=== PATIENT | male | born 1970 | race African-American/Black ===

== ENCOUNTER 2021-02-27 18:27 | Emergency (ER) | payer SELFPAY ==
[~2021-02-27] VITALS: Ht 170.2 cm; Wt 80.0 kg
[2021-02-27] MEDS ORDERED: IV NORMAL SALINE 1,000ML 1,000 ML IV ONE (20:30)
[2021-02-27] MEDS ORDERED: ACETAMINOPHEN 325 MG TABLET PO ONE (20:30)
[2021-02-27] MEDS ORDERED: BENZONATATE 100 MG CAPSULE. PO ONE (20:30)
--- NOTE | 2021-02-27 21:27 | RAD ---
Study: XR CHEST 2V Indication: Cough. Congestion. Comparison: None. Findings: Mild airspace infiltrate favored at the right lower lobe. No layering effusion or pneumothorax. Withi n normal limits cardiomediastinal silhouette. Impression: Ill-defined airspace infiltrate at the right lower lung favored within the lower lobe concerning for a developing pneumonia. Recommend follow-up to confirm resolution. Electronically signed by: ISADORA FARRAR MD (02/27/2021 9:25 PM) [facility]
--- NOTE | 2021-02-27 21:34 | PHYS DOC ---
Adult General Chief Complaint Chief Complaint: FLU SYMPTOM HPI HPI Patient is a 42-year-old male, vital signs reviewed, presents to the emergency department complaining of cough and congestion for the past 3 days. Patient states it feels like he has pneumonia again. Patient states he had pneumonia about a year ago and it felt just like this. Patient denies chest pain. Patient complains of nasal congestion, cough, states his cough is productive with green-yellowish sputum small amount. Patient denies chest pain, denies abdominal pain, denies nausea vomiting or diarrhea. Patient denies visual changes or headaches. Patient denies fever or chills at home. Patient denies any other physical complaints or physical concerns. Patient states he smokes cigarettes, denies EtOH use, denies illicit drug use. Review of Systems Review of Systems 14 body systems of review of systems have been reviewed. See HPI for pertinent positives and negative responses, otherwise all other systems are negative, nonpertinent or noncontributory. Current Medications Current Medications Current Medications Medications (Trade) Dose Ordered Sig/[place] Start Time Stop Time Status Last Admin Dose Admin Acetaminophen (Tylenol) 650 mg 1X ONCE 02/27/21 20:30 02/27/21 21:26 DC Benzonatate (Tessalon Perle) 100 mg 1X ONCE 02/27/21 20:30 02/27/21 21:26 DC Sodium Chloride 1,000 ml @ 1,000 mls/hr 1X ONCE 02/27/21 20:30 02/27/21 21:29 DC Allergies Allergies Allergies Coded Allergies Type Severity Reaction Last Updated Verified Penicillins Allergy Unknown 02/27/21 Yes ketorolac Allergy Unknown 02/27/21 Yes Physical Exam Physical Exam Constitutional: Well developed, well nourished, no acute distress, non-toxic appearance. 50-year-old male in no apparent distress. HENT: Normocephalic, atraumatic, bilateral external ears normal, oropharynx moist, no oral exudates, nose normal. Oropharynx moist, pink, no tonsillar edema, no signs of laryngeal infection, no postnasal drip. No lymphadenopathy of the head or neck. Bilateral nasal turbinates erythematous with clear drainage. Eyes: PERRLA, EOMI, conjunctiva normal, no discharge. Neck: Normal range of motion, no tenderness, supple, no stridor. No meningismus signs, no nuchal rigidity, no midline spinal tenderness. Cardiovascular:Heart rate regular rhythm, no murmur, heart sounds S1-S2 to auscultation. Lungs & Thorax: Bilateral breath sounds clear to auscultation all lung jose, no adventitious lung sounds appreciated. Abdomen: Bowel sounds normal, soft, no tenderness, no masses, no pulsatile masses. Skin: Warm, dry, no erythema, no rash. Back: No tenderness, no CVA tenderness. Extremities: No tenderness, no cyanosis, no clubbing, ROM intact, no edema. Neurologic: Alert and oriented X 3, normal motor function, normal sensory function, no focal deficits noted. Psychologic: Affect normal, judgement normal, mood normal. EKG EKG [] Radiology/Procedures Radiology/Procedures []PATIENT: ISADORA CELAYACOUNT: [id number]#: [id number] : 1970 LOCATION: ER AGE: 50 SEX: M EXAM STATUS: REG ER ORD. PHYSICIAN: LINDA HERRING APRN REASON: COUGH, CONGESTION PROCEDURE: CHEST PA & LATERAL Study: XR CHEST 2V Indication: Cough. Congestion. Comparison: None. Findings: Mild airspace infiltrate favored at the right lower lobe. No layering effusion or pneumothorax. Within normal limits cardiomediastinal silhouette. Impression: Ill-defined airspace infiltrate at the right lower lung favored within the lower lobe concerning for a developing pneumonia. Recommend follow-up to confirm resolution. Electronically signed by: ISADORA FARRAR MD (02/27/2021 9:25 PM) [facility] DICTATED AND SIGNED BY: ISADORA FARRAR MD DATE: 02/27/212123 CC: LINDA EHRRING APRN; EMERGENCY,DEPARTMENT; PCP,NO ~MTH0 0 Heart Score C/O Chest Pain: No Risk Factors: Risk Factors: DM, Current or recent (<one month) smoker, HTN, HLP, family history of CAD, obesity. Risk Scores: Risk Factors: DM, Current or recent (<one month) smoker, HTN, HLP, family history of CAD, obesity. Course & Med Decision Making Course & Med Decision Making Pertinent Labs and Imaging studies reviewed. (See chart for details) 50-year-old male, vital signs reviewed, presents emergency department concerning for cough which he feels like is a pneumonia like he has had in the past. Physical examination was unremarkable, however related to patient's chief complaint a PA/lateral chest x-ray was ordered, Tessalon Perle for cough, oral pain medications given. PA lateral chest concerning for right lower lobe pneumonia per house radiologist interpretation. Discussed findings with patient. Will start on Zithromax in the ED today, sent home with a prescription for Zithromax, Tessalon Perle for cough. Patient states he will see his doctor in [place] when he returns tomorrow. Discussed with patient smoking cessation. Patient gave verbal understanding of discharge home instructions, follow-up with primary care in [facility] tomorrow, return to ER precautions and concerns, antibiotic use, cough medicine use, patient had no further questions or concerns and was discharged home without incident. Dragon Disclaimer Dragon Disclaimer This electronic medical record was generated, in whole or in part, using a voice recognition dictation system. Departure Departure: Impression: Primary Impression: Community acquired pneumonia Additional Impression: Cigarette smoker Disposition: 01 DC HOME SELF CARE/HOMELESS Condition: GOOD Referrals: PCP,NO (PCP) Patient Instructions: Pneumonia, Adult Additional Instructions: You have been diagnosed with right lower lobe pneumonia today in the emergency department. Please take antibiotics as prescribed, please follow-up with your doctor in [facility] tomorrow. Please return to the emergency department for worsening symptoms or other concerns. EMERGENCY DEPARTMENT GENERAL DISCHARGE INSTRUCTIONS Thank you for coming to [facility] (ED) today and trusting us with you care. We trust that you had a positivie experience in our Emergency Department. If you wish to speak to the department management, you may call the director at [phone]. YOUR FOLLOW UP INSTRUCTIONS ARE FOLLOWS: 1. Do you have a private Doctor? If you do not have a private doctor, please ask for a resource list of physicians or clinics that may be able to assist you with follow up care. 2. The Emergency Physician has interpreted your x-rays. The X-Ray specialist will also review them. If there is a change in the findings, you will be notified in 48 hours when at all possible. 3. A lab test or culture has been done, your results will be reviewed and you will be notified if you need a change in treatment. ADDITIONAL INSTRUCTIONS AND INFORMATION: 1. Your care today has been supervised by a physician who is specially trained in emergency care. Many problems require more than one evaluation for a complete diagnosis and treatment. We recommend that you schedule your follow up appointment as recommended to ensure complete treatment of you illness or injury. If you are unable to obtain follow up care and continue to have a problem, or if your condition worsens, we recommend that you return to the ED. 2. We are not able to safely determine your condition over the phone nor are we able to give sound medical advice over the phone. For these safety reasons, if you call for medical advice we will ask you to come to the ED for further evaluation. 3. If you have any questions regarding these discharge instructions please call the ED at [phone]. SAFETY INFORMATION: In the interest of safety, wellness, and injury prevention; we encourage you to wear your sealbelt, if you smoke; quite smoking, and we encourage family to use a protective helmet for bicycling and other sporting events that present an increased risk for head injury. IF YOUR SYMPTOMS WORSEN OR NEW SYMPTOMS DEVELOP, OR YOU HAVE CONCERNS ABOUT YOUR CONDITION; OR IF YOUR CONDITION WORSENS WHILE YOU ARE WAITING FOR YOUR FOLLOW UP APPOINTMENT; EITHER CONTACT YOUR PRIMARY CARE DOCTOR, THE PHYSICIAN WHOSE NAME AND NUMBER YOU WERE GIVEN, OR RETURN TO THE ED IMMEDIATELY. Scripts Benzonatate (TESSALON PERLE) 100 Mg Capsule 1 CAP PO TID for cough, #10 CAP 0 Refills Prov: LINDA HERRING APRN 02/27/21 Azithromycin (AZITHROMYCIN TABLET) 250 Mg Tablet 1 PKG PO UD for PNEUMONIA for 5 Days, #6 TAB 0 Refills 2 the first day followed by 1 for days 2-5 Prov: LINDA HERRING APRN 02/27/21 Problem Qualifiers Primary Impression: Community acquired pneumonia Laterality: right Lung location: lower lobe of lung Qualified Codes: J18.9 - Pneumonia, unspecified organism LINDA HERRING APRN Feb 27, 2021 21:33
[2021-02-27] MEDS ORDERED: AZIT250T6 PO (21:59)
[2021-02-27] MEDS ORDERED: BENZ100C PO (21:59)
[2021-02-27] MEDS ORDERED: AZITHROMYCIN 250 MG TABLET. PO ONE (22:00)
[2021-02-27 22:08] VITALS: BP 133/86
== END 2021-02-27 22:08 | disposition home or self-care (01) ==
LOC: ER 18:27
DX: J18.9 Pneumonia, unspecified organism (principal); F17.210 Nicotine dependence, cigarettes, uncomplicated; Z88.0 Allergy status to penicillin; Z88.8 Allergy status to other drugs, medicaments and biological substances
CPT/HCPCS: 71046; 99284